=== PATIENT | female | born 1940 | race Caucasian/White ===

== ENCOUNTER → 2017-06-25 11:17 | Outpatient (CLI) | payer MEDICARE ==
[2015-03-12 07:33] VITALS: BMI 27.0
[~2017-06-25 11:17] MED LIST: ASPIRIN81 MG PO; BETAPACE 80 MG80 MG PO; BUMETANIDE0.5 MG PO; CORDARONE200 MG PO; COUMADIN5 MG PO; DIABETA2.5 MG PO; HYDROCODON-ACE1 EAC7 PO; LIPITOR20 MG PO; LISINOPRIL5 MG PO; METOPROLOL TART50 MG PO; PEPCID20 MG PO; PLAVIX75 MG PO
== END | disposition home or self-care (01) ==
LOC: D.CT 11:17
DX: R91.8 Other nonspecific abnormal finding of lung field (principal)

== ENCOUNTER 2017-07-15 08:05 | Outpatient (CLI) | payer MEDICARE ==
[2017-07-15 08:51] VITALS: BP 116/58; BMI 19.5
[2017-07-15 09:05] LABS: BASOPHILS 0.2 % (0-2); HEMATOCRIT 29.1 % (36.0-48.0); HEMOGLOBIN 9.3 g/dL (12-16); IMMATURE GRANULOCYTES 0.3 % (0-5); LYMPHOCYTES 8.4 % (15-50); MCH 27.4 pg (26.0-34.0); MCV 85.6 fL (80.0-100.0); MEAN PLATELET VOLUME 8.3 fL (7.4-10.4); MONOCYTES 8.1 % (2-11); RDW 16.1 % (11.5-14.5); WBC 9.6 10x3/uL (4.8-10.8)
[2017-07-15 09:08] LABS: PLATELET COUNT 387 10x3/uL (130-400)
[2017-07-15 09:26] LABS: INR 1.01 (0.85-1.17); PROTIME 13.1 SECONDS (11.6-15.0)
[2017-07-15 09:27] LABS: ANION GAP 11.6 mmol/L (8-16); CALCIUM 9.2 mg/dL (8.5-10.1); CARBON DIOXIDE 27.1 mmol/L (21.0-32.0); CREATININE - SERUM 0.9 mg/dL (0.6-1.3); POTASSIUM - SERUM 4.7 mmol/L (3.5-5.1)
--- NOTE | 2017-07-15 16:31 | NUR ---
1040--ALL VITAL SIGNS CHARTED ON POST PROCEDURE VITAL SIGN SHEET ON CHART. DOC FRANK 1225--RADIOLOGY IN ROOMFOR CXR. DOC FRANK 1425--DISCHARGE INSTRUCTIONS GIVEN, PT VERBALIZES UNDERSTANDING. PT OFF UNIT VIA WC. DOC FRANK
== END 2017-07-15 14:35 | disposition home or self-care (01) ==
LOC: D.OPS 08:05
PROVIDERS: General Practice
DX: C34.32 Malignant neoplasm of lower lobe, left bronchus or lung (principal); Z88.2 Allergy status to sulfonamides; Z88.8 Allergy status to other drugs, medicaments and biological substances